=== PATIENT | male | born 1980 | race Asian ===

== ENCOUNTER 2022-06-19 16:51 | Emergency (ER) | payer OTHER ==
[~2022-06-19] VITALS: Ht 172.7 cm; Wt 68.2 kg
[2022-06-19 19:29] VITALS: BP 122/61
[2022-06-19] MEDS ORDERED: IBUP-2070 PO (19:39)
[2022-06-19] MEDS ORDERED: HYDR-4723 PO (19:39)
== END 2022-06-19 19:59 | disposition home or self-care (01) ==
LOC: EMS 16:51
DX: S82.831A Other fracture of upper and lower end of right fibula, initial encounter for closed fracture (principal); F12.90 Cannabis use, unspecified, uncomplicated; F17.210 Nicotine dependence, cigarettes, uncomplicated; X50.0XXA Overexertion from strenuous movement or load, initial encounter; Y93.89 Activity, other specified; Y92.89 Other specified places as the place of occurrence of the external cause; Y99.8 Other external cause status
CPT/HCPCS: 29515; 99284; 73610-TC; 73630-TC; Z7502